=== PATIENT | female | born 1985 | race Caucasian/White ===

== ENCOUNTER → 2016-12-22 | Outpatient (CLI) | payer OTHER ==
[2016-12-22 11:03] LABS: Basophils % (A) 1 %; CHCM 34.6; Eosinophils # (A) 0.2 k/uL (0-0.7); Eosinophils % (A) 4 %; HCT 36.9 % (34.0-46.0); HDW 2.44; HGB 12.5 gm/dL (11.4-16.0); Luc # (Auto) 0.08; Luc % (Auto) 2; Lymphocytes # (A) 1.6 k/uL (1.0-4.8); Lymphocytes % (A) 32 %; MCH 29.5 pg (25.0-35.0); MCHC 33.8 g/dL (31.0-37.0); MCV 87.2 fL (80.0-100.0); Mean Platelet Volume 7.2; Monocytes # (A) 0.3 k/uL (0-1.0); Monocytes % (A) 6 %; Neutrophils # (A) 2.9 k/uL (1.3-7.7); Neutrophils % (A) 57 %; RBC 4.23 m/uL (3.80-5.40); RDW 13.8 % (11.5-15.5); WBC 5.1 k/uL (3.8-10.6); WBC (Perox) 5.26
[2016-12-22 11:21] LABS: ALT 29 U/L (9-52); AST 19 U/L (14-36); Alkaline Phosphatase 42 U/L (38-126); Anion Gap 10 mmol/L; Blood Urea Nitrogen 11 mg/dL (7-17); Calcium 9.3 mg/dL (8.4-10.2); Carbon Dioxide 21 mmol/L (22-30); Chloride 107 mmol/L (98-107); Cholesterol 141 mg/dL (<200); GGT <10 U/L (12-43); Glucose 85 mg/dL (74-99); HDL Cholesterol 53 mg/dL (40-60); Non-African American GFR(MDRD) >60 (>60 ml/min/1.73 sqM); Potassium 4.6 mmol/L (3.5-5.1); Sodium 138 mmol/L (137-145); Total Bilirubin 0.4 mg/dL (0.2-1.3); Total Protein 6.9 g/dL (6.3-8.2)
[2016-12-22 11:49] LABS: Hepatitis B Surface Ag Index 0.06
[2016-12-22 11:55] LABS: Hepatitis B Core IgM Index 0.04
[2016-12-22 12:06] LABS: Hepatitis C Virus IgG Ab Reactive (Negative)
[2016-12-22 12:28] LABS: Hemoglobin A1C 5.2 % (4.2-6.1)
[2016-12-22 12:30] LABS: Prothrombin Time 10.1 sec (9.0-12.0)
[2016-12-23 14:36] LABS: Alpha Fetoprotein 5.2 ng/mL; Down Sydrome Risk 1:N/A; Human Chorionic Gonadotropin 92.4 IU/mL; Interpretation SeeBelow; Maternal Age Risk for Down 1:N/A
[2016-12-24 10:35] LABS: HCG,Qualitative Serum Detected
== END | disposition home or self-care (01) ==
LOC: LABWHC1 10:25
PROVIDERS: ATTEND Internal Medicine
DX: Z00.00 Encounter for general adult medical examination without abnormal findings (principal); E78.5 Hyperlipidemia, unspecified; B19.20 Unspecified viral hepatitis C without hepatic coma
CPT/HCPCS: 36415; 80053; 80061; 80074; 82105; 82677; 82977; 83036; 84439; 84443; 84702; 84703; 85025; 85610; 85730; 86336

== ENCOUNTER → 2016-12-24 | Outpatient (CLI) | payer OTHER ==
[2016-12-27 09:54] LABS: Hepatits C Virus RNA, Quant <12 IU/mL (<12); LOG HCV IU/mL <1.08 (<1.08)
== END | disposition home or self-care (01) ==
LOC: LABWHC1 16:17
PROVIDERS: ATTEND Internal Medicine
DX: K75.9 Inflammatory liver disease, unspecified (principal)
CPT/HCPCS: 36415; 87521; 87522

== ENCOUNTER 2017-12-10 21:25 | Emergency (ER) | payer OTHER ==
[2017-12-10 21:31] VITALS: BP 129/68; PULSE 82; RESP 18; TEMP 98.2
--- NOTE | 2017-12-10 21:32 | ED ---
ENT HPI - General Stated complaint: dental pain Time Seen by Provider: 12/10/17 21:31 Source: patient, RN notes reviewed Mode of arrival: ambulatory Limitations: language barrier - History of Present Illness Initial comments: 31-year-old female presents emergency Department chief complaint of left upper dental pain. She states that she felt some pain yesterday worsened today while at work. She states there is mild swelling. She does have a known dental fracture on that side. Patient reports no fever or chills. - Related Data Previous Rx's Medication Instructions Recorded Penicillin V Potassium [Pen Vee K] 500 mg PO QID #40 tablet 12/10/17 Allergies Allergy/AdvReac Type Severity Reaction Status Date / Time No Known Allergies Allergy Verified 12/10/17 21:31 Review of Systems ROS Statement: Those systems with pertinent positive or pertinent negative responses have been documented in the HPI. ROS Other: All systems not noted in ROS Statement are negative. Past Medical History Additional Past Medical History / Comment(s): hepatitis c History of Any Multi-Drug Resistant Organisms: None Reported Past Surgical History: No Surgical Hx Reported Past Psychological History: Anxiety, Depression Smoking Status: Current every day smoker Past Alcohol Use History: None Reported Past Drug Use History: None Reported General Exam Limitations: no limitations General appearance: alert, in no apparent distress Head exam: Present: atraumatic, normocephalic, normal inspection Eye exam: Present: normal appearance, PERRL, EOMI. Absent: scleral icterus, conjunctival injection, periorbital swelling ENT exam: Present: normal exam, mucous membranes moist. Absent: normal oropharynx (Dental fracture #13, no drainable abscess mild swelling) Neck exam: Present: normal inspection. Absent: tenderness, meningismus, lymphadenopathy Respiratory exam: Present: normal lung sounds bilaterally. Absent: respiratory distress, wheezes, rales, rhonchi, stridor Cardiovascular Exam: Present: regular rate, normal rhythm, normal heart sounds. Absent: systolic murmur, diastolic murmur, rubs, gallop, clicks Neurological exam: Present: alert, oriented X3, CN II-XII intact Skin exam: Present: warm, dry, intact, normal color. Absent: rash Course Vital Signs 12/10/17 21:29 Temperature 98.2 F Pulse Rate 82 Respiratory 18 Rate Blood Pressure 129/68 O2 Sat by Pulse 100 Oximetry Medical Decision Making - Medical Decision Making 31-year-old female presented emergency department for dental pain, facial swelling. She has a dental infection no drainable abscess. Patient is currently 31 weeks was started on Pen-Vee K. She is advised to take [id number]-[id number] acetaminophen as directed and return for any worsening symptoms. Patient advised follow-up with dentist. Disposition Clinical Impression: Pain, dental, Dental infection, Fracture of tooth Disposition: HOME SELF-CARE Condition: Stable Instructions: Toothache (ED) Additional Instructions: Please return to the Emergency Department if symptoms worsen or any other concerns. Prescriptions: Penicillin V Potassium [Pen Vee K] 500 mg PO QID #40 tablet Is patient prescribed a controlled substance at d/c from ED?: No Referrals: Daniel Mathur MD [Primary Care Provider] - 1-2 days Time of Disposition: 21:36
[2017-12-10] MEDS ORDERED: PENICILLIN VK 500MG STARTER 4 TAB BTL PO STA (21:34)
== END 2017-12-10 21:44 | disposition home or self-care (01) ==
LOC: EC 21:25
DX: O9A.213 Injury, poisoning and certain other consequences of external causes complicating pregnancy, third trimester (principal); S02.5XXA Fracture of tooth (traumatic), initial encounter for closed fracture; O99.613 Diseases of the digestive system complicating pregnancy, third trimester; K04.7 Periapical abscess without sinus; O99.333 Smoking (tobacco) complicating pregnancy, third trimester; F17.200 Nicotine dependence, unspecified, uncomplicated; Z3A.31 31 weeks gestation of pregnancy; X58.XXXA Exposure to other specified factors, initial encounter
CPT/HCPCS: 99282

== ENCOUNTER 2017-12-25 18:22 | Inpatient (IN) | payer OTHER ==
[2017-12-25] MEDS: LACTATED RINGERS 1,000 ML IV SCH (18:50)
[2017-12-25] MEDS ORDERED: CITRIC ACID-SODIUM CITRATE 15 ML CUP PO ONE (19:02)
[2017-12-25] MEDS ORDERED: fentaNYL (PF) 50 MCG/ML 2 ML AMP ONE (19:04)
[2017-12-25] MEDS ORDERED: OXYTOCIN 10 UNIT/ML 1 ML VIAL ONE (19:04)
[2017-12-25] MEDS ORDERED: HYDROmorphone (PF) 1 MG/ML ONE (19:04)
[2017-12-25] MEDS ORDERED: DEXAMETHASONE SOD PHOS (MDV) 100 MG/10 ML VIAL ONE (19:04)
[2017-12-25] MEDS ORDERED: KETOROLAC 30 MG/ML 1 ML VIAL ONE (19:04)
[2017-12-25] MEDS ORDERED: diphenhydrAMINE 50 MG/ML 1 ML VIAL ONE (19:04)
[2017-12-25] MEDS ORDERED: SUCCINYLCHOLINE CHLORIDE 100 MG/5 ML SYR IV ONE (19:04)
[2017-12-25] MEDS ORDERED: PROPOFOL 10 MG/ML 20 ML VIAL IV ONE (19:04)
[2017-12-25 19:08] LABS: Basophils % (A) 0 %; Eosinophils # (A) 0.1 k/uL (0-0.7); Eosinophils % (A) 1 %; HCT 29.9 % (34.0-46.0); HGB 9.5 gm/dL (11.4-16.0); Hypochromasia Moderate; Lymphocytes # (A) 1.7 k/uL (1.0-4.8); Lymphocytes % (A) 18 %; MCH 26.6 pg (25.0-35.0); MCHC 31.8 g/dL (31.0-37.0); MCV 83.6 fL (80.0-100.0); Mean Platelet Volume 8.9; Monocytes # (A) 0.4 k/uL (0-1.0); Monocytes % (A) 5 %; Neutrophils # (A) 6.9 k/uL (1.3-7.7); Neutrophils % (A) 75 %; Platelet Count 224 k/uL (150-450); Poikilocytosis Slight; RBC 3.57 m/uL (3.80-5.40); RDW 13.7 % (11.5-15.5); WBC 9.2 k/uL (3.8-10.6)
[2017-12-25 19:39] VITALS: BMI 22.7
[2017-12-25] MEDS ORDERED: ONDANSETRON 4 MG/2 ML VIAL IVP PRN (20:00)
[2017-12-25] MEDS ORDERED: OXYTOCIN 20 UNITS/1000 ML NS 1,000 ML IV SCH (20:00)
[2017-12-25] MEDS ORDERED: ZOLPIDEM 5 MG TAB PO PRN (20:00)
[2017-12-25] MEDS ORDERED: diphenhydrAMINE 50 MG/ML 1 ML VIAL IVP PRN ×2 (20:00)
[2017-12-25] MEDS ORDERED: ACETAMINOPHEN TAB 325 MG TAB PO PRN (20:00)
[2017-12-25] MEDS ORDERED: SIMETHICONE 80 MG CHEWABLE PO PRN (20:00)
[2017-12-25] MEDS ORDERED: diphenhydrAMINE 25 MG CAP PO PRN (20:00)
[2017-12-25] MEDS ORDERED: diphenhydrAMINE 50 MG CAP PO PRN (20:00)
[2017-12-25] MEDS ORDERED: METOCLOPRAMIDE 5 MG/ML 2 ML VIAL IVP PRN (20:00)
[2017-12-25] MEDS ORDERED: NALOXONE 0.4 MG/ML 1 ML VIAL IV PRN ×2 (20:00→21:42)
[2017-12-25 20:03] VITALS: RESP 16
--- NOTE | 2017-12-25 20:07 | P.HPOB ---
History of Present Illness H&P Date: 12/25/17 Chief Complaint: Contractions This is a 31-year-old 3 para 2002 woman with an estimated due date of who is 33-3/7 weeks with diamniotic dichorionic twins. She comes in complaining of worsening contractions over the last several hours. She had a slip and fall where she stumbled onto her knees at 10 AM this morning. She denies any abdominal trauma. She has no vaginal bleeding or leakage of fluids. She did however started having some contractions after this fall which have can continued and progressed throughout the day. When she initially presented to labor and delivery triage she was found to be 9+ centimeters dilated. Patient reports on her last ultrasound she was told on baby A was head down and baby B was transverse. She been counseled regarding possible section. Upon my initial evaluation the patient is completely dilated with bulging membranes. heart tones are reassuring for baby A and B. She is complaining of pelvic pressure. She denies leakage of fluids or vaginal bleeding. She is nichol every 1-2 minutes. She reports that the other than being twins has been uncomplicated. She has a history have a history of hepatitis C positive and a remote history of drug use. No drug use in the . Obstetric history is significant for term vaginal deliveries in 2017 and 2008. Blood type O positive, antibody screen negative, rubella immune, VDRL nonreactive, hepatitis B surface antigen negative, hepatitis C antibodies positive, HIV negative, group B strep status unknown Review of Systems All systems: negative Past Medical History Additional Past Medical History / Comment(s): hepatitis c, drug history of heroin and etoh. no drug use or etoh for 3 years. smoker 1/2 ppd x 13 years History of Any Multi-Drug Resistant Organisms: None Reported Past Surgical History: Appendectomy Additional Past Surgical History / Comment(s): 2009 Past Anesthesia/Blood Transfusion Reactions: No Reported Reaction Past Psychological History: Anxiety, Depression Additional Psychological History / Comment(s): weaned off meds during preg. Smoking Status: Current every day smoker Past Alcohol Use History: None Reported Additional Past Alcohol Use History / Comment(s): no etoh x 3 years Past Drug Use History: Heroin Additional Drug Use History / Comment(s): no use for 3 years - Past Family History Father Family Medical History: Hypertension Medications and Allergies Home Medications Medication Instructions Recorded Confirmed Type Ferrous Sulfate [Iron] 325 mg PO DAILY MDD 1 12/25/17 12/25/17 History Pnv,Calcium 72/Iron/Folic Acid 1 each PO DAILY MDD 1 12/25/17 12/25/17 History [ Plus Tablet] Allergies Allergy/AdvReac Type Severity Reaction Status Date / Time No Known Allergies Allergy Verified 12/25/17 19:02 Exam Vital Signs Temp Pulse Resp BP Pulse Ox 12/25/17 19:01 99.0 F 85 18 126/79 100 Intake and Output 12/25/17 12/25/17 12/25/17 06:59 14:59 22:59 Other: Weight 65.771 kg Targeted physical exam is performed. This isn't actively laboring, visibly gravid female. Pelvic exam reveals bulging membranes and a completely dilated cervix. No vaginal bleeding. Results Result Diagrams: 12/25/17 18:56 Abnormal Lab Results - Last 24 Hours (Table) 12/25/17 Range/Units 18:56 RBC 3.57 L (3.80-5.40) m/uL Hgb 9.5 L (11.4-16.0) gm/dL Hct 29.9 L (34.0-46.0) % Assessment and Plan (1) labor Current Visit: Yes Status: Acute Code(s): O60.00 - LABOR WITHOUT DELIVERY, UNSPECIFIED TRIMESTER SNOMED Code(s): 4244752 (2) Twins Current Visit: Yes Status: Acute Code(s): Z37.9 - OUTCOME OF DELIVERY, UNSPECIFIED SNOMED Code(s): 30995796 (3) 33 weeks gestation of Current Visit: Yes Status: Acute Code(s): Z3A.33 - 33 WEEKS GESTATION OF SNOMED Code(s): 51521850 (4) Hepatitis C antibody positive in blood Current Visit: Yes Status: Acute Code(s): R76.8 - OTHER SPECIFIED ABNORMAL IMMUNOLOGICAL FINDINGS IN SERUM SNOMED Code(s): 456441327 Plan: 31-year-old 3 para 2001 woman in advanced active labor with vertex, non-vertex twins at 33-3/7 weeks gestation. She is counseled regarding recommendation to proceed with the immediate low transverse section secondary to non-vertex presentation of the second twin. Verbal consent is obtained. I reviewed rapidly risk of bleeding, transfusion, maternal or injury. The tobacco grower has been notified and is available. Anesthesiology team is notified.
--- NOTE | 2017-12-25 20:13 | P.OP ---
Date of Procedure: 12/25/17 Preoperative Diagnosis: Diamniotic dichorionic twin gestation Vertex/non-vertex twins 33-3/7 weeks labor Maternal hepatitis C positive Postoperative Diagnosis: Same Procedure(s) Performed: Primary low transverse section Anesthesia: LINCOLN Surgeon: Mee Miranda Pizza Baker #1: Ant Lozano Estimated Blood Loss (ml): 600 IV fluids (ml): 600 Urine output (ml): 100 Pathology: other (Placenta) Condition: stable Disposition: other (4) Operative Findings: Infant A, vertex, weight 1845 g, Apgars of 8 at 1 minute and 8 at 5 minutes, clear amniotic fluid B, transverse back up, 1945 g, Apgars of 8 at 1 minute and 9 at 5 minutes , clear amniotic fluid Description of Procedure: The patient was taken rapidly from triage to the operating room. She was complaining of urge to push therefore decision was made to proceed with general anesthetic. The patient was positioned, prepped and draped with a Santos catheter in place. General anesthetic was induced and airway sit was secured. Low transverse skin incision was made and was carried down to the underlying fascia sharply the fascia was incised in the midline and extended bilaterally sharply and bluntly. The . Superior aspects of the fascial incision were elevated and the underlying rectus muscles dissected off sharply. The rectus muscles were bluntly in the midline and the peritoneum was entered bluntly. The bladder blade was placed. A low transverse uterine incision was made with the scalpel and carried down to the underlying amniotic membranes. Membranes were ruptured and clear fluid was noted. Uterine incision was extended bluntly. a prescription vertex was delivered from the deep pelvis from the incision and the rest the was immediately delivered onto the field. Cord was clamped and cut. The uterus was explored and infant B was noted to be in the transverse vertex to the maternal right back up position. The feet were delivered to the incision and amniotic membranes were ruptured. Clear fluid was noted. The was then gently delivered in the breech presentation. Internal and external rotation were utilized to facilitate delivery of the anterior and posterior shoulders. The head was flexed and fundal pressure was delivered to deliver the after coming head. The cord was clamped and cut and the was taken rapidly by the pediatric team. [place] clamp had been placed on umbilical cord of twin A and curved hemostat on twin B. The placenta was then manually removed. No evidence of acute or chronic abruption was appreciated on my preliminary inspection. The uterus was then exteriorized and cleared of all clot and debris. Bladder blade was replaced and the uterine incision was delineated with Manley's. Uterine incision was closed in a running locked fashion with 0 Vicryl suture followed by second imbricating layer of the same. Additional [id number] sutures were placed along the incision for hemostasis which was then achieved. The uterus was returned to the abdomen and the gutters were cleared of all clot and debris. The uterine incision was reinspected as were the fascial edges rectus muscles and peritoneal edges. The peritoneum and rectus muscles were reapproximated in the midline with interrupted [id number] 0 Vicryl suture. The fascia was then closed with 0 Vicryl suture. The subcuticular tissue was copiously suction irrigated and Bovie electrocautery was utilized to obtain hemostasis. Skin was closed using hansa. All counts reported to me as correct by the operating room staff. The patient was awoken from anesthetic and transported to the recovery area in good condition.
[2017-12-25] MEDS: HYDROmorphone PCA 5 MG/25 ML SYRINGE IV PRN (20:26)
[2017-12-25] MEDS ORDERED: NICOTINE 21MG/24HR PATCH TRANSDERM STA (21:20)
[2017-12-25] MEDS ORDERED: HYDROmorphone PCA 5 MG/25 ML SYRINGE IV PRN (21:42)
[2017-12-26] MEDS: HYDROmorphone PCA 5 MG/25 ML SYRINGE IV PRN ×2 (01:56→09:51)
[2017-12-26] MEDS: KETOROLAC 30 MG/ML 1 ML VIAL IVP PRN ×3 (06:04→18:09)
[2017-12-26] MEDS: SENNOSIDES-DOCUSATE SODIUM 1 EACH TAB PO SCH ×3 (06:40→19:34)
[2017-12-26 07:45] LABS: Basophils % (A) 0 %; Eosinophils % (A) 0 %; HCT 27.5 % (34.0-46.0); HGB 8.8 gm/dL (11.4-16.0); Hypochromasia Moderate; Lymphocytes # (A) 1.1 k/uL (1.0-4.8); Lymphocytes % (A) 10 %; MCH 26.6 pg (25.0-35.0); MCHC 32.2 g/dL (31.0-37.0); MCV 82.5 fL (80.0-100.0); Mean Platelet Volume 9.3; Monocytes # (A) 0.5 k/uL (0-1.0); Monocytes % (A) 4 %; Neutrophils # (A) 9.9 k/uL (1.3-7.7); Neutrophils % (A) 85 %; Platelet Count 206 k/uL (150-450); Poikilocytosis Slight; RBC 3.33 m/uL (3.80-5.40); RDW 13.9 % (11.5-15.5); WBC 11.7 k/uL (3.8-10.6)
--- NOTE | 2017-12-26 10:28 | P.PNOBGPC ---
Subjective - Subjective Patient reports: Reports appetite normal, Reports voiding normally, Reports pain well controlled, Reports ambulating normally : doing well, in NICU ([facility] issues [facility]urity.), transported Objective - Vital Signs Latest vital signs: Vital Signs Temp Pulse Resp BP Pulse Ox 12/26/17 08:00 98.0 F 75 16 114/75 98 12/26/17 04:00 60 16 113/55 12/26/17 00:00 98 F 86 16 115/69 97 12/25/17 21:51 98.2 F 71 16 128/80 100 12/25/17 21:21 80 16 139/86 100 12/25/17 20:51 77 16 129/85 99 12/25/17 20:36 74 16 139/89 100 12/25/17 20:21 76 16 119/80 99 12/25/17 20:06 70 16 124/71 99 12/25/17 19:51 97.5 F L 79 16 129/62 97 12/25/17 19:01 99.0 F 85 18 126/79 100 Intake and Output 12/25/17 12/26/17 12/26/17 22:59 06:59 14:59 Output Total 800 1100 Balance -800 -1100 Output: Urine 800 1100 Other: Voiding Method Indwelling Catheter Indwelling Catheter # Voids 1 Weight 65.771 kg - Exam Extremities: Present: normal Abdomen: Present: normal appearance, soft. Absent: distention, tenderness Incision: Present: normal, dry, intact Uterus: Present: normal, firm (The uterine fundus as tonic and appropriately tender below the umbilicus.) - Labs Labs: Abnormal Lab Results - Last 24 Hours (Table) 12/25/17 12/26/17 Range/Units 18:56 07:12 WBC 11.7 H (3.8-10.6) k/uL RBC 3.57 L 3.33 L (3.80-5.40) m/uL Hgb 9.5 L 8.8 L (11.4-16.0) gm/dL Hct 29.9 L 27.5 L (34.0-46.0) % Neutrophils # 9.9 H (1.3-7.7) k/uL Assessment and Plan (1) Status post section Current Visit: Yes Status: Acute Code(s): Z98.891 - HISTORY OF UTERINE SCAR FROM PREVIOUS SURGERY SNOMED Code(s): 284296019 Plan: Continue routine postoperative care. I have ordered an abdominal binder and will discontinue her NONPROFIT MANAGER and stop IV fluids as she is tolerating by mouth well. I have strongly encouraged her to ambulate in the halls at least 4 times daily. I would anticipate discharge home tomorrow pending complications.
[2017-12-26] MEDS: HYDROcodone/APAP 5-325MG 1 EACH TAB PO PRN ×2 (16:35→21:39)
[2017-12-26] MEDS ORDERED: NICOTINE 21MG/24HR PATCH TRANSDERM STA (18:18)
[2017-12-26] MEDS: LACTATED RINGERS 1,000 ML IV SCH (20:19)
[2017-12-27] MEDS: IBUPROFEN 600 MG TAB PO PRN ×2 (00:06→06:06)
[2017-12-27 00:26] VITALS: TEMP 98.5
[2017-12-27] MEDS: HYDROcodone/APAP 5-325MG 1 EACH TAB PO PRN (03:09)
[2017-12-27] MEDS: SENNOSIDES-DOCUSATE SODIUM 1 EACH TAB PO SCH (07:43)
[2017-12-27 08:03] VITALS: BP 127/74; PULSE 62
--- NOTE | 2017-12-27 09:00 | P.DS ---
Providers Date of admission: 12/25/17 19:00 Expected date of discharge: 12/27/17 Attending physician: Barrett Rosen Primary care physician: Barrett Rosen - Discharge Diagnosis(es) (1) Status post section Current Visit: Yes Status: Acute Hospital Course: The patient is a 31-year-old 3 para 2001 admitted at 33-3/7 weeks by good dating parameters perches admitted with a known diamniotic dichorionic twin gestation in active labor. Her was uncomplicated aside from the twin gestation and entirely stable up until this point. She did have some relatively minor trauma earlier in the day and began experiencing contractions after that. She presented to the hospital and was found to be approximately 8-9 cm dilated. She had been counseled previously regarding the likelihood of delivery secondary to second twin concerns and agreed to the procedure. She was taken the operating room where she was delivered by primary low transverse section of a viable twin A in vertex presentation weighing 1845 g with Apgars of 8 at 1 minute and 8 at 5 minutes. This was followed by a viable twin B delivered in transverse back up position weighing 1945 g with Apgars of 8 at 1 minute and 9 at 5 minutes. The infants were transferred to [facility] for issues of prematurity. The patient' s postoperative course was unremarkable with vital signs remained stable and her temperature was afebrile throughout. She was deemed stable for discharge on postoperative day #2 and was discharged home to follow-up in the office in 2 weeks for an incision check and 6 weeks routinely. Discharge instructions included calling for any significantly increased bleeding or foul-smelling lochia, significantly increased fever abdominal pain, perineal complaints, breast complaints, incisional complaints, or anything else that concerns her. She was additionally instructed to have nothing in the vagina for at least 6 weeks time to include intercourse and to abstain from any heavy lifting over the same. Of time. She was lastly instructed to do no driving until off of all pain medications or 2 weeks' time, whichever came first. She understood her instructions and agrees to follow up as noted above. Discharge medications included a prescription for Matteson 5/325 mg, 1-2 by mouth every 6 hours when necessary pain, #20 dispensed with no refills. She was otherwise to continue with iron sulfate as she was slightly anemic following surgery with a discharge hemoglobin and hematocrit of 8.8 and 27.5 respectively. Maternal blood type is O+ and rubella status is immune. Procedures: #1. Urgent primary low-transverse section Patient Condition at Discharge: Stable Plan - Discharge Summary Discharge Rx Participant: No New Discharge Prescriptions: No Action Pnv,Calcium 72/Iron/Folic Acid [ Plus Tablet] 1 each PO DAILY MDD 1 Ferrous Sulfate [Iron] 325 mg PO DAILY MDD 1 Discharge Medication List Ferrous Sulfate [Iron] 325 mg PO DAILY MDD 1 12/25/17 [History] Pnv,Calcium 72/Iron/Folic Acid [ Plus Tablet] 1 each PO DAILY MDD 1 [History] Follow up Appointment(s)/Referral(s): Barrett Rosen MD [Primary Care Provider] - 2 Weeks Discharge Disposition: HOME SELF-CARE
== END 2017-12-27 10:25 | disposition home or self-care (01) | DRG 765 ==
LOC: FBPOP 18:22 → 4FBP 19:00
PROVIDERS: ADMIT Obstetrics & Gynecology; ATTEND Obstetrics & Gynecology
PROC: 10D00Z1 Extraction of Products of Conception, Low, Open Approach (ICD-10-PCS; principal; 2017-12-25 19:05)
DX: O60.14X0 Preterm labor third trimester with preterm delivery third trimester, not applicable or unspecified (principal); O98.42 Viral hepatitis complicating childbirth; O30.043 Twin pregnancy, dichorionic/diamniotic, third trimester; O99.344 Other mental disorders complicating childbirth; F41.9 Anxiety disorder, unspecified; F32.9 Major depressive disorder, single episode, unspecified; O99.02 Anemia complicating childbirth; O99.334 Smoking (tobacco) complicating childbirth; F17.210 Nicotine dependence, cigarettes, uncomplicated; B19.20 Unspecified viral hepatitis C without hepatic coma; O32.1XX2 Maternal care for breech presentation, fetus 2; Z37.2 Twins, both liveborn; Z3A.33 33 weeks gestation of pregnancy; Z82.49 Family history of ischemic heart disease and other diseases of the circulatory system; Z90.49 Acquired absence of other specified parts of digestive tract; W01.0XXA Fall on same level from slipping, tripping and stumbling without subsequent striking against object, initial encounter; Y92.9 Unspecified place or not applicable
CPT/HCPCS: 85025; 86850; 86900; 86901; 88307; 99213

== ENCOUNTER → 2018-05-11 | Outpatient (CLI) | payer OTHER ==
[2018-05-11 17:08] LABS: Anisocytosis Slight; Basophils % (A) 0 %; Eosinophils # (A) 0.1 k/uL (0-0.7); Eosinophils % (A) 2 %; HCT 32.5 % (34.0-46.0); HGB 10.3 gm/dL (11.4-16.0); Lymphocytes # (A) 2.6 k/uL (1.0-4.8); Lymphocytes % (A) 33 %; MCH 24.6 pg (25.0-35.0); MCHC 31.8 g/dL (31.0-37.0); MCV 77.5 fL (80.0-100.0); Mean Platelet Volume 6.9; Microcytosis Slight; Monocytes # (A) 0.4 k/uL (0-1.0); Monocytes % (A) 5 %; Neutrophils # (A) 4.5 k/uL (1.3-7.7); Neutrophils % (A) 58 %; Platelet Count 346 k/uL (150-450); RDW 17.5 % (11.5-15.5); WBC 7.8 k/uL (3.8-10.6)
== END | disposition home or self-care (01) ==
LOC: LABPAT 16:24
PROVIDERS: ATTEND Obstetrics & Gynecology
DX: Z30.2 Encounter for sterilization (principal)
CPT/HCPCS: 85025

== ENCOUNTER 2018-05-16 09:57 | Day surgery (SDC) | payer OTHER ==
[2018-05-11 14:42] VITALS: BMI 18.8
[~2018-05-16 09:57] MED LIST: DEXAMETHASONE SOD PHOSPHATE 10 MG/ML 1 ML VIAL IV ONE; LACTATED RINGERS 1,000 ML IV SCH; LIDOCAINE 1% 20 ML VIAL (10MG/ML) FOR IV START INTRADERMA PRN; Pre Op ABX Message 1 EACH MISC MISCELLANE ONE
[2018-05-16] MEDS: fentaNYL (PF) 50 MCG/ML 2 ML AMP IV PRN ×2 (10:25→10:30)
[2018-05-16] MEDS ORDERED: KETOROLAC 30 MG/ML 1 ML VIAL IVP PRN (10:34)
[2018-05-16] MEDS ORDERED: diphenhydrAMINE 50 MG/ML 1 ML VIAL IVP PRN (10:34)
[2018-05-16] MEDS ORDERED: Acetaminophen-Codeine 300-30mg TAB PO PRN ×2 (10:34)
[2018-05-16] MEDS ORDERED: IBUPROFEN 600 MG TAB PO PRN (10:34)
[2018-05-16] MEDS ORDERED: SIMETHICONE 80 MG CHEWABLE PO PRN (10:34)
[2018-05-16] MEDS ORDERED: METOCLOPRAMIDE 5 MG/ML 2 ML VIAL IVP PRN (10:34)
[2018-05-16] MEDS ORDERED: ONDANSETRON 4 MG/2 ML VIAL IVP PRN (10:34)
[2018-05-16] MEDS: HYDROmorphone 1 MG/ML 1 ML SYRINGE IVP ONE ×2 (10:35→10:40)
[2018-05-16] MEDS: MIDAZOLAM 2 MG/2 ML VIAL IV PRN ×2 (10:35→11:51)
[2018-05-16] MEDS ORDERED: GLYCOPYRROLATE 0.2 MG/ML 2 ML VIAL ONE (10:37)
[2018-05-16] MEDS ORDERED: MIDAZOLAM 2 MG/2 ML VIAL ONE (10:37)
[2018-05-16] MEDS ORDERED: NEOSTIGMINE 1 MG/ML 10 ML VIAL ONE (10:37)
[2018-05-16] MEDS ORDERED: KETAMINE 10 MG/ML 20 ML VIAL ONE (10:37)
[2018-05-16] MEDS ORDERED: LIDOCAINE 1% INJ 10MG/ML (20 ML MDV) ONE (10:37)
[2018-05-16] MEDS ORDERED: SUCCINYLCHOLINE CHLORIDE 100 MG/5 ML SYR IV ONE (10:37)
[2018-05-16] MEDS ORDERED: fentaNYL (PF) 50 MCG/ML 2 ML AMP ONE (10:37)
[2018-05-16] MEDS ORDERED: PROPOFOL 10 MG/ML 20 ML VIAL IV ONE (10:37)
[2018-05-16] MEDS ORDERED: KETOROLAC 30 MG/ML 1 ML VIAL ONE (10:37)
[2018-05-16] MEDS ORDERED: ROCURONIUM BROMIDE 10 MG/ML 10 ML VIAL IV ONE (10:37)
[2018-05-16] MEDS ORDERED: HYDROmorphone (PF) 1 MG/ML ONE (10:37)
[2018-05-16] MEDS ORDERED: LACTATED RINGERS 1,000 ML IV SCH (10:45)
[2018-05-16] MEDS ORDERED: ROPIVACAINE 5 MG/ML 30 ML VIAL MISCELLANE ONE (11:08)
--- NOTE | 2018-05-16 11:16 | P.OP ---
Date of Procedure: 05/16/18 Preoperative Diagnosis: #1. Multiparity #2. Undesired fertility Postoperative Diagnosis: Same Procedure(s) Performed: #1. Laparoscopic bilateral tubal occlusion with Filshie clips Anesthesia: LINCOLN Surgeon: Barrett Rosen Estimated Blood Loss (ml): 2 IV fluids (ml): 700 Urine output (ml): 20 Pathology: none sent Condition: stable Disposition: PACU Operative Findings: Preoperative pelvic examination demonstrated a 4 week acutely anteverted mobile normal shaped uterus with normal adnexa bilaterally. Intraoperatively, these findings were confirmed with no evidence of pathology throughout the pelvis. The uterus, tubes, and ovaries were normal to inspection. These appendix was surgically absent as a stapling was noted on the cecum. The liver and gallbladder and diaphragm appeared normal as well. Description of Procedure: The patient was prepped and draped in usual fashion after general endotracheal anesthesia was administered by the anesthesiologist. A speculum was placed and the anterior lip of the cervix grasped with a single-tooth tenaculum allowing placement of an acorn cannula without difficulty for manipulation. The bladder was then drained of approximately 20 mL of clear david urine. Attention was turned to the abdomen where a 5 mm incision was made in a semilunar fashion through pre-existing scar underneath the umbilicus allowing insertion of a 5 mm optical trocar under direct visualization without difficulty. A pneumoperitoneum was established. A site was selected in the midline approximately 5 cm above the pubic symphysis where a pre-existing section scar was found. An 8 mm incision was made in the transverse plane through the scar along insertion of an 8 mm optical trocar under direct vision station without difficulty. Trendelenburg positioning and the blunt probe regresses repeat the bowel from the pelvis. After inspection of the pelvis and abdomen with the findings as noted above, the probe was replaced with a Filshie clip applicator which was utilized to place a Filshie clip firmly across the entire thickness of the right fallopian tube approximately 2 cm from the cornea appeared similar operation was carried out on the opposite side without difficulty. After reinspecting the abdomen and pelvis and finding no further issue her pathology, the pneumoperitoneum was evacuated through the 2 trocar sites and the trochars removed. The incisions were closed with interrupted subcuticular stitches of 4-0 Vicryl followed by half-inch Steri-Strips placed with Mastisol. Estimated blood loss for the case was 2 mL or less. The 2 incisions were infused with a total of 9 mL of half percent ropivacaine without epinephrine equally divided between the 2 incisions. All sponge, instrument, needle counts were correct. Instrument H was removed from the vagina. The patient tolerated the procedure well and proceeded to the recovery room in stable condition.
[2018-05-16 11:33] VITALS: TEMP 98.6
[2018-05-16] MEDS ORDERED: LACTATED RINGERS 1,000 ML IV ONE (11:46)
[2018-05-16] MEDS: MEPERIDINE 50 MG/ML SYRINGE IVP ONE ×2 (11:57→12:05)
[2018-05-16] MEDS ORDERED: FUROSEMIDE 10 MG/ML 2 ML VIAL IV ONE (11:57)
[2018-05-16] MEDS ORDERED: Acetaminophen-Codeine 300-30mg TAB PO ONE ×2 (12:25→12:56)
[2018-05-16 12:34] VITALS: PULSE 56
[2018-05-16 12:47] VITALS: RESP 18
[2018-05-16 13:09] VITALS: BP 131/75
== END 2018-05-16 13:34 | disposition home or self-care (01) ==
LOC: OR 09:57
PROVIDERS: ATTEND Obstetrics & Gynecology
DX: Z30.2 Encounter for sterilization (principal)
CPT/HCPCS: 58671; 81025; J2250; J1200; J1100; J2710; J2175; J2001; J3010; J1885; J1170; J2795; J0330; J2704

== ENCOUNTER 2018-06-10 21:10 | Emergency (ER) | payer OTHER ==
[2018-06-10 21:14] VITALS: TEMP 98.2
[2018-06-10] MEDS ORDERED: SODIUM CHLORIDE 0.9% 1,000 ML IV STA (21:22)
[2018-06-10] MEDS ORDERED: LORazepam 1 MG TAB PO STA (21:33)
--- NOTE | 2018-06-10 21:54 | ED ---
General Adult HPI - General Chief complaint: Seizure Stated complaint: Seizure Time Seen by Provider: 06/10/18 21:22 Source: patient, EMS Mode of arrival: EMS Limitations: no limitations - History of Present Illness Initial comments: Reina is a 32-year-old female with history of seizure disorder for which she is on Lamictal. Patient reports she has seizures when she was younger which she associated with her being on tramadol. Seizures then resolved however 2 months ago she began having seizures again. She was prescribed Lamictal she is currently following with a neurologist she reports she underwent her outpatient EEGs last week and has plan for follow-up with neurology later in the week. Patient states that she usually takes her Lamictal earlier in the afternoon however she forgot today and didn't take it until late in the evening. She reports that immediately prior to arrival she believes she had a seizure. The seizure was witnessed by her significant other who immediately called 911. He reports the seizure lasted approximately 3 minutes was tonic-clonic in nature. Per EMS the patient was postictal upon their arrival but upon arrival to the emergency department she is awake alert and oriented with no complaints. Patient does report that her antidepressants have been changed recently which may be contributing to her having a seizure. - Related Data Home Medications Medication Instructions Recorded Confirmed ALPRAZolam [Xanax] 0.5 mg PO BID PRN 05/11/18 05/16/18 Iron Supplement 1 tab PO DIRECTED 05/11/18 05/16/18 Sertraline [Zoloft] 75 mg PO DAILY 05/11/18 05/16/18 lamoTRIgine [LaMICtal] 100 mg PO DAILY 05/11/18 05/16/18 Allergies Allergy/AdvReac Type Severity Reaction Status Date / Time No Known Allergies Allergy Verified 05/16/18 10:07 Review of Systems ROS Statement: Those systems with pertinent positive or pertinent negative responses have been documented in the HPI. ROS Other: All systems not noted in ROS Statement are negative. Past Medical History Additional Past Medical History / Comment(s): hepatitis c, drug history of heroin and etoh. no drug use or etoh for 3 years, scoliosis, anemia. History of Any Multi-Drug Resistant Organisms: None Reported Past Surgical History: Appendectomy, Section Additional Past Surgical History / Comment(s): egd Past Anesthesia/Blood Transfusion Reactions: Postoperative Nausea & Vomiting ( PONV) Additional Past Anesthesia/Blood Transfusion Reaction / Comment(s): PONV AFTER EMERGENCY Past Psychological History: Anxiety, Depression, Panic Disorder Smoking Status: Current every day smoker Past Alcohol Use History: None Reported Past Drug Use History: Heroin - Past Family History Father Family Medical History: Hypertension General Exam Limitations: no limitations Course Vital Signs 06/10/18 06/10/18 21:11 22:22 Temperature 98.2 F Pulse Rate 112 H 90 Respiratory 24 18 Rate Blood Pressure 138/84 102/85 O2 Sat by Pulse 100 99 Oximetry Medical Decision Making - Medical Decision Making Patient was seen and evaluated history is obtained from the patient This patient with a known seizure disorder who admits she took her medications multiple hours late today she subsequent had a approximately 3 minute tonic- clonic seizure which resolved spontaneously without medications. Upon arrival patient's feeling much better. Patient has established follow-up with neurology coming up as she just had her EEG and is planning to discuss results. At this time the patient's comfortable with the plan for discharge home. Patient does report some anxiety and fear over having had another seizure. 1 mg oral Ativan was ordered and administered. Patient resting comfortably comfortable plan for discharge home and outpatient follow-up. Patient's heart rate improved significantly while in the emergency department, she remains hemodynamically stable at this time. - Lab Data Result diagrams: 06/10/18 21:15 06/10/18 21:15 Lab Results 06/10/18 06/10/18 Range/Units 21:15 21:15 WBC 7.7 (3.8-10.6) k/uL RBC 4.44 (3.80-5.40) m/uL Hgb 10.8 L (11.4-16.0) gm/dL Hct 35.3 (34.0-46.0) % MCV 79.4 L (80.0-100.0) fL MCH 24.3 L (25.0-35.0) pg MCHC 30.5 L (31.0-37.0) g/dL RDW 16.9 H (11.5-15.5) % Plt Count 408 (150-450) k/uL Neutrophils % 47 % Lymphocytes % 40 % Monocytes % 6 % Eosinophils % 4 % Basophils % 0 % Neutrophils # 3.6 (1.3-7.7) k/uL Lymphocytes # 3.1 (1.0-4.8) k/uL Monocytes # 0.5 (0-1.0) k/uL Eosinophils # 0.3 (0-0.7) k/uL Basophils # 0.0 (0-0.2) k/uL Hypochromasia Moderate Anisocytosis Slight Microcytosis Slight Sodium 142 (137-145) mmol/L Potassium 3.6 (3.5-5.1) mmol/L Chloride 106 (98-107) mmol/L Carbon Dioxide 22 (22-30) mmol/L Anion Gap 14 mmol/L BUN 15 (7-17) mg/dL Creatinine 0.70 (0.52-1.04) mg/dL Est GFR (CKD-EPI)AfAm >90 (>60 ml/min/1.73 sqM) Est GFR (CKD-EPI)NonAf >90 (>60 ml/min/1.73 sqM) Glucose 103 H (74-99) mg/dL Calcium 8.2 L (8.4-10.2) mg/dL Total Bilirubin 0.3 (0.2-1.3) mg/dL AST 36 (14-36) U/L ALT 49 (9-52) U/L Alkaline Phosphatase 85 (38-126) U/L Total Protein 7.3 (6.3-8.2) g/dL Albumin 4.6 (3.5-5.0) g/dL Disposition Clinical Impression: Epileptic seizure Disposition: HOME SELF-CARE Condition: Good Instructions (If sedation given, give patient instructions): Recurrent Seizures in Adults (ED) Is patient prescribed a controlled substance at d/c from ED?: No Referrals: Daniel Mathur MD [Primary Care Provider] - 1-2 days
[2018-06-10 21:59] LABS: ALT 49 U/L (9-52); AST 36 U/L (14-36); Albumin 4.6 g/dL (3.5-5.0); Alkaline Phosphatase 85 U/L (38-126); Anion Gap 14 mmol/L; Blood Urea Nitrogen 15 mg/dL (7-17); Calcium 8.2 mg/dL (8.4-10.2); Carbon Dioxide 22 mmol/L (22-30); Chloride 106 mmol/L (98-107); Glucose 103 mg/dL (74-99); Potassium 3.6 mmol/L (3.5-5.1); Sodium 142 mmol/L (137-145); Total Bilirubin 0.3 mg/dL (0.2-1.3); Total Protein 7.3 g/dL (6.3-8.2)
[2018-06-10 22:03] LABS: Anisocytosis Slight; Basophils % (A) 0 %; Eosinophils # (A) 0.3 k/uL (0-0.7); Eosinophils % (A) 4 %; HCT 35.3 % (34.0-46.0); HGB 10.8 gm/dL (11.4-16.0); Hypochromasia Moderate; Lymphocytes # (A) 3.1 k/uL (1.0-4.8); Lymphocytes % (A) 40 %; MCH 24.3 pg (25.0-35.0); MCHC 30.5 g/dL (31.0-37.0); MCV 79.4 fL (80.0-100.0); Mean Platelet Volume 6.9; Microcytosis Slight; Monocytes # (A) 0.5 k/uL (0-1.0); Monocytes % (A) 6 %; Neutrophils # (A) 3.6 k/uL (1.3-7.7); Neutrophils % (A) 47 %; Platelet Count 408 k/uL (150-450); RBC 4.44 m/uL (3.80-5.40); RDW 16.9 % (11.5-15.5); WBC 7.7 k/uL (3.8-10.6)
[2018-06-10 22:23] VITALS: BP 102/85; PULSE 90; RESP 18
--- NOTE | 2018-06-12 06:09 | CDI ---
Dear Adriana Interiano DO: Please do addendum Physical Examination. Thank you, Arelis Riley, [facility]. If you have any questions, please contact Electrical Assistant at [phone]. [facility]
== END 2018-06-10 22:23 | disposition home or self-care (01) ==
LOC: EC 21:10
DX: G40.909 Epilepsy, unspecified, not intractable, without status epilepticus (principal); F06.4 Anxiety disorder due to known physiological condition; F32.9 Major depressive disorder, single episode, unspecified; F17.200 Nicotine dependence, unspecified, uncomplicated; Z79.899 Other long term (current) drug therapy
CPT/HCPCS: 36415; 80053; 85025; 99284

== ENCOUNTER 2019-11-28 01:21 | Emergency (ER) | payer OTHER ==
[2019-11-28 01:30] VITALS: BP 119/76; PULSE 99; RESP 18; TEMP 98.2
[2019-11-28] MEDS ORDERED: ACET/COD 300 MG/30 MG STARTER PACK 6 TAB BTL PO STA (01:37)
[2019-11-28] MEDS ORDERED: KETOROLAC 15 MG/ML 1 ML VIAL IM STA (01:37)
[2019-11-28] MEDS ORDERED: PENICILLIN VK 500MG STARTER 4 TAB BTL PO STA (01:37)
--- NOTE | 2019-11-28 01:39 | ED ---
General Adult HPI - General Chief complaint: Dental/Oral Stated complaint: TOOTH ACHE Time Seen by Provider: 11/28/19 01:31 Source: patient Mode of arrival: ambulatory Limitations: no limitations - History of Present Illness Initial comments: 33-year-old female patient presents to the emergency department today for evaluation of right lower dental pain. Patient states that she's had dental pain for the last couple of days. States she has very poor dentition multiple broken teeth. She denies any fever or chills. Denies any trismus or difficulty swallowing. She denies any nausea or vomiting. Patient has been taking ibuprofen without relief. She had taken a couple of amoxicillin today from a friend states it did not help. States that she has been unable to follow-up with the dentist for her known dental problems. She denies any chance of . Patient denies any recent rash, cough, shortness of breath, chest pain, abdominal pain, diarrhea, constipation, back pain, numbness, tingling, dizziness, weakness, hematuria, dysuria, urinary urgency, urinary frequency, headache, visual changes, or any other complaints. - Related Data Home Medications Medication Instructions Recorded Confirmed ALPRAZolam [Xanax] 0.5 mg PO BID PRN 05/11/18 05/16/18 Iron Supplement 1 tab PO DIRECTED 05/11/18 05/16/18 Sertraline [Zoloft] 75 mg PO DAILY 05/11/18 05/16/18 lamoTRIgine [LaMICtal] 100 mg PO DAILY 05/11/18 05/16/18 Previous Rx's Medication Instructions Recorded Naproxen [EC-Naprosyn] 500 mg PO BID PRN #30 tablet. 11/28/19 Penicillin V Potassium [Pen Vee K] 500 mg PO Q6H #40 tablet 11/28/19 Allergies Allergy/AdvReac Type Severity Reaction Status Date / Time No Known Allergies Allergy Verified 11/28/19 01:30 Review of Systems ROS Statement: Those systems with pertinent positive or pertinent negative responses have been documented in the HPI. ROS Other: All systems not noted in ROS Statement are negative. Past Medical History Additional Past Medical History / Comment(s): hepatitis c, drug history of heroin and etoh. no drug use or etoh for 3 years, scoliosis, anemia. History of Any Multi-Drug Resistant Organisms: None Reported Past Surgical History: Appendectomy, Section Additional Past Surgical History / Comment(s): egd Past Anesthesia/Blood Transfusion Reactions: Postoperative Nausea & Vomiting (PONV) Additional Past Anesthesia/Blood Transfusion Reaction / Comment(s): PONV AFTER EMERGENCY Past Psychological History: Anxiety, Depression, Panic Disorder Smoking Status: Current every day smoker Past Alcohol Use History: None Reported Past Drug Use History: Heroin - Past Family History Father Family Medical History: Hypertension General Exam Limitations: no limitations General appearance: alert, in no apparent distress, other (This is a well- developed, well-nourished adult female patient in no acute distress. Vital signs upon presentation are temperature 98.2F, pulse 99, respirations 18, blood pressure 119/76, pulse ox 99% on room air.) Eye exam: Present: normal appearance, PERRL, EOMI. Absent: scleral icterus, conjunctival injection, periorbital swelling ENT exam: Present: mucous membranes moist, other (Tooth #32 is fractured down to the pulp. There is surrounding gingival erythema and hyperplasia. No evidence for drainable abscess.). Absent: normal exam Course Vital Signs 11/28/19 01:26 Temperature 98.2 F Pulse Rate 99 Respiratory 18 Rate Blood Pressure 119/76 O2 Sat by Pulse 99 Oximetry Medical Decision Making - Medical Decision Making 33-year-old female patient presents to the emergency department today for evaluation of right lower dental pain. Physical examination did reveal fractured tooth #32 down to the pulp. There is surrounding gingival erythema and hyperplasia. No evidence for drainable abscess. She is afebrile. She'll be discharged with pain medication and penicillin. She is instructed to follow- up with dentistry as soon as possible. Return parameters were discussed in detail. She verbalizes understanding and agrees with this plan. Disposition Clinical Impression: Dental infection Disposition: HOME SELF-CARE Condition: Good Instructions (If sedation given, give patient instructions): Dental Abscess (ED), Toothache (ED) Additional Instructions: Take medications as directed. Follow-up with dentistry for recheck as soon as possible. Return to the emergency department immediately for any new, worsening, or concerning symptoms. Prescriptions: Naproxen [EC-Naprosyn] 500 mg PO BID PRN #30 tablet.dr BOYER Reason: Pain Penicillin V Potassium [Pen Vee K] 500 mg PO Q6H #40 tablet Is patient prescribed a controlled substance at d/c from ED?: No Referrals: Daniel Mathur MD [Primary Care Provider] - 1-2 days Time of Disposition: 01:38
== END 2019-11-28 01:59 | disposition home or self-care (01) ==
LOC: EC 01:21
DX: K04.7 Periapical abscess without sinus (principal); S02.5XXA Fracture of tooth (traumatic), initial encounter for closed fracture; K06.1 Gingival enlargement; F41.0 Panic disorder [episodic paroxysmal anxiety]; F32.9 Major depressive disorder, single episode, unspecified; F17.200 Nicotine dependence, unspecified, uncomplicated; Z79.899 Other long term (current) drug therapy; X58.XXXA Exposure to other specified factors, initial encounter
CPT/HCPCS: 99282; 96372; J1885

== ENCOUNTER 2020-05-13 21:47 | Emergency (ER) | payer OTHER ==
[2020-05-13 21:55] VITALS: PULSE 85
[2020-05-13 22:28] VITALS: RESP 18
--- NOTE | 2020-05-13 23:34 | XR ---
EXAMINATION TYPE: XR ribs LT w pa chest xray DATE OF EXAM: 05/13/2020 COMPARISON: NONE HISTORY: Fall. Rib pain TECHNIQUE: 5 views FINDINGS: Heart and mediastinum are normal. Lungs are clear of infiltrate. There is no pleural effusi on or pneumothorax. There is fracture of the lateral left ninth rib. There is slight deformity also o f the left eighth rib. IMPRESSION: Acute fracture left ninth rib and probably also the left eighth rib. No cardiopulmonary d isease.
[2020-05-14] MEDS ORDERED: IBUPROFEN 600 MG STARTER PACK 4 TAB BTL PO STA (00:12)
[2020-05-14] MEDS ORDERED: ACET/COD 300 MG/30 MG STARTER PACK 6 TAB BTL PO STA (00:12)
--- NOTE | 2020-05-14 00:12 | ED ---
Chest Pain HPI - General Chief Complaint: Chest Pain Stated Complaint: Rib pain from fall Time Seen by Provider: 05/13/20 22:38 Source: patient, RN notes reviewed, old records reviewed Mode of arrival: ambulatory Limitations: no limitations - History of Present Illness Initial Comments: This is a 34-year-old female to the ER for evaluation. Patient presents today. For evaluation of left-sided rib pain left-sided chest pain. No shortness of breath no other complaints. No complaints of shortness of breath. Patient is severe left-sided chest pain left-sided rib pain after fall a few days ago. Patient is seizures been having recurrent seizures patient comes in from [place], patient does appear to be intoxicated early son reports of some sedating medications. Patient's history is a little gambled MD Complaint: chest pain, other (Left ribfracture) -: days(s) Onset: other (Symptoms after a fall) Pain Location: left chest Severity: moderate Severity scale (1-10): 5 Quality: sharp Consistency: constant Improves With: nothing Worsens With: inspiration, movement Context: trauma/injury, other (Symptoms after fall) Other Symptoms: cough Treatments Prior to Arrival: none - Related Data Home Medications Medication Instructions Recorded Confirmed ALPRAZolam [Xanax] 1 mg PO TID 05/13/20 05/13/20 DULoxetine HCL [Cymbalta] 60 mg PO DAILY 05/13/20 05/13/20 Ibuprofen [Motrin Ib] 800 mg PO ONCE PRN 05/13/20 05/13/20 Mirtazapine [Remeron] 15 mg PO HS 05/13/20 05/13/20 lamoTRIgine [LaMICtal] 150 mg PO DAILY 05/13/20 05/13/20 levETIRAcetam [Keppra] 750 mg PO BID 05/13/20 05/13/20 Allergies Allergy/AdvReac Type Severity Reaction Status Date / Time No Known Allergies Allergy Verified 05/13/20 23:26 Review of Systems ROS Statement: Those systems with pertinent positive or pertinent negative responses have been documented in the HPI. ROS Other: All systems not noted in ROS Statement are negative. Past Medical History Additional Past Medical History / Comment(s): hepatitis c, drug history of heroin and etoh. no drug use or etoh for 3 years, scoliosis, anemia. History of Any Multi-Drug Resistant Organisms: None Reported Past Surgical History: Appendectomy, Section Additional Past Surgical History / Comment(s): egd Past Anesthesia/Blood Transfusion Reactions: Postoperative Nausea & Vomiting (PONV) Additional Past Anesthesia/Blood Transfusion Reaction / Comment(s): PONV AFTER EMERGENCY Past Psychological History: Anxiety, Depression, Panic Disorder Smoking Status: Current every day smoker Past Alcohol Use History: Abuse, Daily, Heavy Past Drug Use History: Heroin, Opiates, Prescription Drug Abuse - Past Family History Father Family Medical History: Hypertension General Exam Limitations: no limitations General appearance: alert, in no apparent distress, anxious Head exam: Present: atraumatic, normocephalic, normal inspection Eye exam: Present: normal appearance, PERRL, EOMI. Absent: scleral icterus, conjunctival injection, periorbital swelling ENT exam: Present: normal exam, mucous membranes moist Neck exam: Present: normal inspection. Absent: tenderness, meningismus, lymphadenopathy Respiratory exam: Present: normal lung sounds bilaterally. Absent: respiratory distress, wheezes, rales, rhonchi, stridor Cardiovascular Exam: Present: regular rate, normal rhythm, normal heart sounds, other (Left-sided rib fracture). Absent: systolic murmur, diastolic murmur, rubs, gallop, clicks GI/Abdominal exam: Present: soft, normal bowel sounds. Absent: distended, t enderness, guarding, rebound, rigid Extremities exam: Present: normal inspection, full ROM, normal capillary refill. Absent: tenderness, pedal edema, joint swelling, calf tenderness Back exam: Present: normal inspection Neurological exam: Present: alert, oriented X3, CN II-XII intact Psychiatric exam: Present: normal affect, normal mood Skin exam: Present: warm, dry, intact, normal color. Absent: rash Course Vital Signs 05/13/20 05/13/20 21:50 22:22 Temperature 97.7 F Pulse Rate 85 Respiratory 17 18 Rate Blood Pressure 125/85 O2 Sat by Pulse 100 Oximetry - Reevaluation(s) Reevaluation #1: 05/14/20 00:08 Medical records reviewed Reevaluation #2: 05/14/20 00:08 Patient is in no distress Reevaluation #3: 05/14/20 00:09 Patient did present from [place] where she states she was getting bad treatment even though she was in pain Reevaluation #4: studies Chest x-rays positive for eighth and ninth rib fracture Chest Pain MDM - MDM 34 female 3-4 days after fall with left sided chest pain. Eighth and ninth rib fractures left side. No other injury noted, no pneumonia noted. Patient can be discharged home Disposition Clinical Impression: Left rib fracture Disposition: HOME SELF-CARE Condition: Good Instructions (If sedation given, give patient instructions): Rib Fracture (ED) Is patient prescribed a controlled substance at d/c from ED?: No Referrals: Daniel Mathur MD [Primary Care Provider] - 1-2 days
[2020-05-14 00:25] VITALS: BP 120/85; TEMP 98
== END 2020-05-14 00:28 | disposition home or self-care (01) ==
LOC: EC 21:47
DX: S22.42XA Multiple fractures of ribs, left side, initial encounter for closed fracture (principal); F32.9 Major depressive disorder, single episode, unspecified; F41.0 Panic disorder [episodic paroxysmal anxiety]; F17.200 Nicotine dependence, unspecified, uncomplicated; Z79.899 Other long term (current) drug therapy; W19.XXXA Unspecified fall, initial encounter
CPT/HCPCS: 99284

== ENCOUNTER 2020-06-21 17:47 | Emergency (ER) | payer OTHER ==
--- NOTE | 2020-06-21 18:34 | ED ---
Extremity Problem HPI - General Chief complaint: Extremity Problem,Nontraumatic Stated complaint: Feet Pain Time Seen by Provider: 06/21/20 18:14 Source: patient, RN notes reviewed Mode of arrival: ambulatory Limitations: no limitations - History of Present Illness Initial comments: Patient is a 34-year-old female that presents to emergency department c omplaining of bilateral foot pain. She notes that she has a history of pain that comes and goes waxes and wanes. She denied any current pain while sitting in bed during the exam interview. She notes that she does follow with a neurologist and her primary care regularly. Patient was erratic with body movements and language. She was in no apparent distress or pain while 7 Benadryl exam and interview. She denied chest pain first breath headache nausea vomiting diarrhea constipation fever fatigue weakness numbness tingling or decreased range of motion or strength. - Related Data Home Medications Medication Instructions Recorded Confirmed ALPRAZolam [Xanax] 1 mg PO TID 05/13/20 05/13/20 DULoxetine HCL [Cymbalta] 60 mg PO DAILY 05/13/20 05/13/20 Ibuprofen [Motrin Ib] 800 mg PO ONCE PRN 05/13/20 05/13/20 Mirtazapine [Remeron] 15 mg PO HS 05/13/20 05/13/20 lamoTRIgine [LaMICtal] 150 mg PO DAILY 05/13/20 05/13/20 levETIRAcetam [Keppra] 750 mg PO BID 05/13/20 05/13/20 Allergies Allergy/AdvReac Type Severity Reaction Status Date / Time No Known Allergies Allergy Verified 06/21/20 17:59 Review of Systems ROS Statement: Those systems with pertinent positive or pertinent negative responses have been documented in the HPI. ROS Other: All systems not noted in ROS Statement are negative. Past Medical History Additional Past Medical History / Comment(s): hepatitis c, drug history of heroin and etoh. no drug use or etoh for 3 years, scoliosis, anemia. History of Any Multi-Drug Resistant Organisms: None Reported Past Surgical History: Appendectomy, Section Additional Past Surgical History / Comment(s): egd Past Anesthesia/Blood Transfusion Reactions: Postoperative Nausea & Vomiting (P ONV) Additional Past Anesthesia/Blood Transfusion Reaction / Comment(s): PONV AFTER EMERGENCY Past Psychological History: Anxiety, Depression, Panic Disorder Smoking Status: Current every day smoker Past Alcohol Use History: Abuse, Daily, Heavy Past Drug Use History: Heroin, Opiates, Prescription Drug Abuse - Past Family History Father Family Medical History: Hypertension General Exam Limitations: no limitations General appearance: alert, in no apparent distress Head exam: Present: atraumatic, normocephalic, normal inspection Eye exam: Present: normal appearance, PERRL, EOMI. Absent: scleral icterus, conjunctival injection, periorbital swelling ENT exam: Present: normal exam, mucous membranes moist Neck exam: Present: normal inspection. Absent: tenderness, meningismus, lymphadenopathy Respiratory exam: Present: normal lung sounds bilaterally. Absent: respiratory distress, wheezes, rales, rhonchi, stridor Cardiovascular Exam: Present: regular rate, normal rhythm, normal heart sounds. Absent: systolic murmur, diastolic murmur, rubs, gallop, clicks GI/Abdominal exam: Present: soft, normal bowel sounds. Absent: distended, tenderness, guarding, rebound, rigid Extremities exam: Present: normal inspection, full ROM, normal capillary refill. Absent: tenderness, pedal edema, joint swelling, calf tenderness Back exam: Present: normal inspection Neurological exam: Present: alert, oriented X3, CN II-XII intact Psychiatric exam: Present: normal affect, normal mood Skin exam: Present: warm, dry, intact, normal color. Absent: rash Course Vital Signs 06/21/20 17:56 Temperature 98.5 F Pulse Rate 81 Respiratory 18 Rate Blood Pressure 121/60 O2 Sat by Pulse 98 Oximetry Medical Decision Making - Medical Decision Making 34-year-old female complaining of bilateral foot pain. Bilateral foot x-ray ordered. Patient declined the need for pain medication. - Radiology Data Radiology results: report reviewed, image reviewed Negative bilateral foot exam. No evidence of inflammatory arthritis no fracture. Disposition Clinical Impression: Bilateral foot pain Disposition: HOME SELF-CARE Condition: Stable Instructions (If sedation given, give patient instructions): Arthralgia (ED) Additional Instructions: Please return to the Emergency Department if symptoms worsen or any other concerns. Follow-up with neurology for the symptoms of tingling in her extremities that comes and goes. Follow-up with primary care in 2-5 days. Keep a journal of foods that might cause lower first swelling. Is patient prescribed a controlled substance at d/c from ED?: No Referrals: Daniel Mathur MD [Primary Care Provider] - 1-2 days Time of Disposition: 19:33
--- NOTE | 2020-06-21 18:53 | XR ---
EXAMINATION TYPE: XR foot complete bilateral DATE OF EXAM: 06/21/2020 COMPARISON: NONE HISTORY: Bilateral foot pain TECHNIQUE: 3 views each foot FINDINGS: The metatarsals are intact. I see no fracture nor dislocation. Joint spaces are fairly norm al. There are no erosions. There are no pathologic calcifications. IMPRESSION: Negative bilateral foot exam. No evidence of inflammatory arthritis. No fracture.
[2020-06-21 19:48] VITALS: BP 118/82; PULSE 72; RESP 16; TEMP 98.1
== END 2020-06-21 19:48 | disposition home or self-care (01) ==
LOC: EC 17:47
DX: M79.671 Pain in right foot (principal); M79.672 Pain in left foot; F32.9 Major depressive disorder, single episode, unspecified; F17.200 Nicotine dependence, unspecified, uncomplicated; Z90.49 Acquired absence of other specified parts of digestive tract
CPT/HCPCS: 99283

== ENCOUNTER 2023-11-01 12:20 | Emergency (ER) | payer OTHER ==
[2023-11-01 12:31] VITALS: RESP 18; TEMP 98.1
--- NOTE | 2023-11-01 12:37 | ED ---
ENT HPI - General Chief complaint: Dental/Oral Stated complaint: R Facial Swelling-Tooth Time Seen by Provider: 11/01/23 12:37 Source: patient, RN notes reviewed Mode of arrival: ambulatory Limitations: no limitations - History of Present Illness Initial comments: This is a 37-year-old female presents emergency department chief complaint of right facial swelling. Patient notes that yesterday evening she began to experience maxillary dental pain of the right side stated to take amoxicillin that was prescribed to her friend's daughter. Patient that when she woke up this morning her dental pain subsided however has been experiencing right-sided facial swelling. She denies fevers, chills, nausea, vomiting, abdominal pain, shortness of breath or headaches. Patient has taken multiple doses of the amoxicillin that was prescribed. - Related Data Home Medications Medication Instructions Recorded Confirmed ALPRAZolam [Xanax] 1 mg PO TID 05/13/20 05/13/20 DULoxetine HCL [Cymbalta] 60 mg PO DAILY 05/13/20 05/13/20 Ibuprofen [Motrin Ib] 800 mg PO ONCE PRN 05/13/20 05/13/20 Mirtazapine [Remeron] 15 mg PO HS 05/13/20 05/13/20 lamoTRIgine [LaMICtal] 150 mg PO DAILY 05/13/20 05/13/20 levETIRAcetam [Keppra] 750 mg PO BID 05/13/20 05/13/20 Previous Rx's Medication Instructions Recorded Amoxicillin 875 mg PO Q12HR #20 tablet 11/01/23 Ibuprofen [Motrin] 800 mg PO Q6HR PRN #30 tab 11/01/23 Allergies Allergy/AdvReac Type Severity Reaction Status Date / Time No Known Allergies Allergy Verified 11/01/23 12:31 Review of Systems ROS Statement: Those systems with pertinent positive or pertinent negative responses have been documented in the HPI. ROS Other: All systems not noted in ROS Statement are negative. Past Medical History Additional Past Medical History / Comment(s): hepatitis c, drug history of heroin and etoh. no drug use or etoh for 3 years, scoliosis, anemia. History of Any Multi-Drug Resistant Organisms: None Reported Past Surgical History: Appendectomy, Section Additional Past Surgical History / Comment(s): egd Past Anesthesia/Blood Transfusion Reactions: Postoperative Nausea & Vomiting (PONV) Additional Past Anesthesia/Blood Transfusion Reaction / Comment(s): PONV AFTER EMERGENCY Past Psychological History: Anxiety, Depression, Panic Disorder Smoking Status: Current every day smoker Past Alcohol Use History: Abuse, Daily, Heavy Past Drug Use History: Heroin, Opiates, Prescription Drug Abuse - Past Family History Father Family Medical History: Hypertension General Exam Limitations: no limitations General appearance: alert, in no apparent distress Head exam: Present: atraumatic, normocephalic, normal inspection Eye exam: Present: normal appearance, PERRL, EOMI. Absent: scleral icterus, conjunctival injection, periorbital swelling ENT exam: Present: normal exam, mucous membranes moist Expanded Mouth exam: Present: other (maxillary facial swelling, no erythema) Teeth exam: Present: dental caries, fractured tooth #. Absent: normal inspection Throat exam: normal inspection. negative: tonsillar erythema Neck exam: Present: normal inspection. Absent: tenderness, meningismus, lymphadenopathy Respiratory exam: Present: normal lung sounds bilaterally. Absent: respiratory distress, wheezes, rales, rhonchi, stridor Cardiovascular Exam: Present: regular rate, normal rhythm, normal heart sounds. Absent: systolic murmur, diastolic murmur, rubs, gallop, clicks GI/Abdominal exam: Present: soft, normal bowel sounds. Absent: distended, tenderness, guarding, rebound, rigid Extremities exam: Present: normal inspection, full ROM, normal capillary refill. Absent: tenderness, pedal edema, joint swelling, calf tenderness Back exam: Present: normal inspection Neurological exam: Present: alert, oriented X3, CN II-XII intact Psychiatric exam: Present: normal affect, normal mood Course Vital Signs 11/01/23 12:28 Temperature 98.1 F Pulse Rate 103 H Respiratory 18 Rate Blood Pressure 143/86 O2 Sat by Pulse 97 Oximetry Medical Decision Making - Medical Decision Making Was pt. sent in by a medical professional or institution (, PA, GRAIN PROCESSOR, urgent care, hospital, or assisted...) When possible be specific @ -No Did you speak to anyone other than the patient for history (EMS, parent, family, police, friend...)? What history was obtained from this source @ -No Did you review nursing and triage notes (agree or disagree)? Why? @ -I reviewed and agree with nursing and triage notes Were old charts reviewed (outside hosp., previous admission, EMS record, old EKG, old radiological studies, urgent care reports/EKG's, assisted records)? Report findings @ -No old charts were reviewed Differential Diagnosis (chest pain, altered mental status, abdominal pain women, abdominal pain men, vaginal bleeding, weakness, fever, dyspnea, syncope, headache, dizziness, GI bleed, back pain, seizure, CVA, palpatations, mental health, musculoskeletal)? @ -Not applicable EKG interpreted by me (3pts min.). @ -dental pain, pulpitis, gingivitis, dental caries, facial swelling, this list is not all inclusive. X-rays interpreted by me (1pt min.). @ -None done CT interpreted by me (1pt min.). @ -None done U/S interpreted by me (1pt. min.). @ -None done What testing was considered but not performed or refused? (CT, X-rays, U/S, labs)? Why? @ -None What meds were considered but not given or refused? Why? @ -None Did you discuss the management of the patient with other professionals (professionals i.e. , PA, GRAIN PROCESSOR, lab, RT, psych nurse, social service director, route sales driver, teacher, correctional security officer, behavioral health case manager)? Give summary @ -No Was smoking cessation discussed for >3mins.? @ -No Was critical care preformed (if so, how long)? @ -No Were there social determinants of health that impacted care today? How? (Homelessness, low income, unemployed, alcoholism, drug addiction, transportation, low edu. Level, literacy, decrease access to med. care, shelter, rehab)? @ -No Was there de-escalation of care discussed even if they declined (Discuss DNR or withdrawal of care, Hospice)? DNR status @ -No What co-morbidities impacted this encounter? (DM, HTN, Smoking, COPD, CAD, Cancer, CVA, ARF, Chemo, Hep., AIDS, mental health diagnosis, sleep apnea, morbid obesity)? @ -None Was patient admitted / discharged? Hospital course, mention meds given and route, prescriptions, significant lab abnormalities, going to OR and other pertinent info. @ -Discharged. 37-year-old female with facial swelling. On examination, patient's vitals are stable. There is no dental tenderness or signs of dental abscess on examination. Patient was prescribed amoxicillin and ibuprofen to take as needed for pain relief. Recommend that patient follows up with dentist this week for further evaluation. All questions answered at bedside and strict return parameters discussed with the patient she is verbalized understanding. Case discussed with Dr. Paulino Undiagnosed new problem with uncertain prognosis? @ -No Drug Therapy requiring intensive monitoring for toxicity (Heparin, Nitro, Insulin, Cardizem)? @ -No Were any procedures done? @ -No Diagnosis/symptom? @ -dental infection, dental carries Acute, or Chronic, or Acute on Chronic? @ -acute Uncomplicated (without systemic symptoms) or Complicated (systemic symptoms)? @ -uncomplicated Side effects of treatment? @ -No Exacerbation, Progression, or Severe Exacerbation? @ -No Poses a threat to life or bodily function? How? (Chest pain, [place], [place], pneumonia, PE, COPD, DKA, ARF, appy, cholecystitis, CVA, Diverticulitis, Homicidal, Suicidal, threat to staff... and all critical care pts) @ -No Disposition Clinical Impression: Dental caries, Infection of tooth Disposition: HOME SELF-CARE Condition: Good Instructions (If sedation given, give patient instructions): Toothache (ED) Additional Instructions: Complete full course of antibiotics as prescribed. Recommend follow-up with dentist this week for further evaluation. Return to the emergency department for any new or worsening symptoms. Prescriptions: Amoxicillin 875 mg PO Q12HR #20 tablet Ibuprofen [Motrin] 800 mg PO Q6HR PRN #30 tab PRN Reason: Pain Is patient prescribed a controlled substance at d/c from ED?: No Referrals: Irma Genao DO [Primary Care Provider] - 1-2 days Time of Disposition: 12:47
[2023-11-01 13:17] VITALS: BP 132/76; PULSE 95
== END 2023-11-01 13:17 | disposition home or self-care (01) ==
LOC: EC 12:20
DX: K04.7 Periapical abscess without sinus (principal); K02.9 Dental caries, unspecified; F17.200 Nicotine dependence, unspecified, uncomplicated
CPT/HCPCS: 99283